=== PATIENT | female | born 2005 | race Two or more races ===

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

== ENCOUNTER 2025-03-09 08:46 | Outpatient (AMB) | payer MEDICAID, SELFPAY ==
[2025-03-09 09:05] VITALS: BP 111/73; PULSE 94; RESP 17; TEMP 36.4; O2SAT 98; BMI 40.8
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
== END 2025-03-09 09:29 | disposition home or self-care (01) ==
LOC: HODSOBC 08:46
PROVIDERS: Supervising Provider Obstetrics & Gynecology; Visit Provider Obstetrics & Gynecology
DX: O09.892 Supervision of other high risk pregnancies, second trimester (principal); O24.012 Pre-existing type 1 diabetes mellitus, in pregnancy, second trimester; E10.65 Type 1 diabetes mellitus with hyperglycemia; Z3A.27 27 weeks gestation of pregnancy; F17.210 Nicotine dependence, cigarettes, uncomplicated; O99.332 Smoking (tobacco) complicating pregnancy, second trimester; O99.322 Drug use complicating pregnancy, second trimester; F12.10 Cannabis abuse, uncomplicated; F14.10 Cocaine abuse, uncomplicated; Z87.59 Personal history of other complications of pregnancy, childbirth and the puerperium; Z79.4 Long term (current) use of insulin; Z71.6 Tobacco abuse counseling
CPT/HCPCS: 99213; G0463

== ENCOUNTER 2025-03-09 09:48 | Observation (INO) | payer SELFPAY ==
[2025-03-09] VITALS (7 sets, daily range): BP systolic 116; BP diastolic 66; PULSE 81–89; RESP 18–97; TEMP 36.6; O2SAT 99–100; BMI 40.8
--- NOTE | 2025-03-09 10:08 | XR_ITS ---
Examination: age Limited TECHNIQUE: Limited transabdominal sonographic images pelvis Date and time: March 09, 2025 1049 hours INDICATIONS: Labor evaluation, type 1 diabetes, lost mucous plug today FINDINGS: Viable intrauterine gestation cephalic presentation Estimated weight 1120 g Estimated age 27 weeks 1 day Cardiac motion 160 BPM IMPRESSION: Viable intrauterine gestation cephalic presentation
--- NOTE | 2025-03-09 10:10 | XR_ITS ---
Examination: Biophysical profile, ultrasound Date and time of exam: March 19, 2025 1043 hours INDICATIONS: Labor evaluation, type 1 diabetes diagnosis Technique: Multiple transabdominal sonographic images of the pelvis abdomen obtained. Attention is directed to the breathing movement, gross body movement, amniotic fluid volume and tone. Findings: Amniotic fluid index 14.6 cm Total biophysical profile is 8 of 8. breathing movement is 2. Gross body movement is 2. tone is 2. Qualitative amniotic fluid volume is 2 Impression: Biophysical profile is 8 of 8.
[2025-03-09 11:14] LABS: Amphetamine/Metham Scrn,Ur OB Negative (Negative); Benzoylecgonine Screen, Ur OB Negative (Negative); Opiate Screen,Urine OB Negative (Negative); THC Screen,Urine OB Negative (Negative)
[2025-03-09 12:06] LABS: Glucose Estimated Average 192 mg/dL (80-131); Hemoglobin A1C 8.3 % Hgb (4.8-6.0)
== END 2025-03-09 12:30 | disposition home or self-care (01) ==
PROVIDERS: Admitting Provider Obstetrics & Gynecology; Visit Provider Obstetrics & Gynecology
DX: O24.012 Pre-existing type 1 diabetes mellitus, in pregnancy, second trimester (principal); E10.9 Type 1 diabetes mellitus without complications; Z3A.27 27 weeks gestation of pregnancy
CPT/HCPCS: 36415; 59025; 59899; 76815; 76819; 80307; 83036

== ENCOUNTER 2025-03-19 13:04 | Outpatient (AMB) | payer MEDICAID, SELFPAY ==
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
[2025-03-19 13:13] VITALS: BP 109/71; PULSE 102; RESP 20; TEMP 36.7; O2SAT 98; BMI 41.0
== END 2025-03-19 14:05 | disposition home or self-care (01) ==
LOC: HODSOBC 13:04
PROVIDERS: Supervising Provider Obstetrics & Gynecology; Visit Provider Obstetrics & Gynecology
DX: O09.293 Supervision of pregnancy with other poor reproductive or obstetric history, third trimester (principal); O34.219 Maternal care for unspecified type scar from previous cesarean delivery; O09.893 Supervision of other high risk pregnancies, third trimester; Z3A.29 29 weeks gestation of pregnancy; O24.013 Pre-existing type 1 diabetes mellitus, in pregnancy, third trimester; E10.9 Type 1 diabetes mellitus without complications; O99.323 Drug use complicating pregnancy, third trimester; F14.10 Cocaine abuse, uncomplicated; F12.10 Cannabis abuse, uncomplicated; O99.333 Smoking (tobacco) complicating pregnancy, third trimester; F17.210 Nicotine dependence, cigarettes, uncomplicated; Z71.6 Tobacco abuse counseling; Z87.59 Personal history of other complications of pregnancy, childbirth and the puerperium; Z79.4 Long term (current) use of insulin
CPT/HCPCS: 99214; G0463

== ENCOUNTER 2025-04-21 00:52 | Observation (INO) | payer MEDICAID, SELFPAY ==
[2025-04-21 01:11] VITALS: BP 111/70; PULSE 81; RESP 17; RESP 98; TEMP 36.1
[2025-04-21 01:12] VITALS: BP 111/70; PULSE 81
[2025-04-21 01:23] VITALS: BMI 43.0
--- NOTE | 2025-04-21 01:38 | XR_ITS ---
Examination: Biophysical profile, ultrasound Date and time of exam: April 21, 2025, 0156 hrs. Indications: Decreased movement today Technique: Multiple transabdominal sonographic images of the pelvis abdomen obtained. Attention is directed to the breathing movement, gross body movement, amniotic fluid volume and tone. Findings: Amniotic fluid index 8.3 cm Total biophysical profile is 8 of 8. breathing movement is 2. Gross body movement is 2. tone is 2. Qualitative amniotic fluid volume is 2 Impression: Biophysical profile is 8 of 8.
--- NOTE | 2025-04-21 01:38 | XR_ITS ---
Examination: Complete OB ultrasound greater than 14 weeks Date and time of exam: April 21, 2025, 0148 hrs. Indications: Decreased movement today Findings: Viable intrauterine single fetus with single amniotic sac presentation cephalic Cardiac motion 143 BPM Placenta posterior grade 1 Umbilical cord insertion 3 vessel seen Amniotic fluid index adequate Ovaries obscured by bowel gas. Composite estimated gestational age based on BPD, head circumference, abdominal circumference, femur length is 35 weeks 6 days Estimated weight 3037.5 g. Survey of intracranial anatomy, spinal anatomy, abdominal anatomy, four-chamber heart performed with no abnormalities identified. Impression: Viable intrauterine gestation cephalic presentation.
--- NOTE | 2025-04-21 03:53 | PRELIM_ITS ---
Obstetric ultrasound with Doppler. April 21, 2025 at 0148 hours Clinical history: Decreased movement. Comparison: No prior study is available for comparison. Findings: There is a gravid uterus with a live fetus in cephalic presentation of mean gestational age 35 weeks and 6 days (by biometry). cardiac activity is present at a heart rate of 143 beats per minute. The placenta is posterior in location, maturity grade 1. There is no evidence of placenta previa or retroplacental hemorrhage. Amniotic fluid is adequate (JORDY = 8.8 cm). Estimated weight is 3038 grams. The cervix measures 4.4 cm, closed. The ovaries were not visualized. No abnormalities by Doppler. Impression: Gravid uterus with a single live fetus in cephalic presentation of mean gestational age 35 weeks 6 days. Report Electronically Signed By: Tod Irby 04/21/2025 3:52:26 AM [EST]
--- NOTE | 2025-04-21 03:56 | PRELIM_ITS ---
Obstetric ultrasound (limited) with Doppler. April 21, 2025 0156 hours Clinical history: DECREASED MOVEMENT Comparison: None available at the time of this report. Findings: There is a gravid uterus with a live fetus in cephalic presentation of mean gestational age 35 weeks and 6 days (by biometry). cardiac activity is present at a heart rate of 143 beats per minute. The placenta is posterior in location, maturity grade 1. There is no evidence of placenta previa or retroplacental hemorrhage. Amniotic fluid is adequate (JORDY = 8.8 cm). Estimated weight is 3038 grams. The cervix measures 4.4 cm. No abnormalities by Doppler. Biophysical Profile: Breathing : 2 Tone : 2 Amniotic fluid : 2 Movement : 2 BPP Score : 8/8 Impression: Gravid uterus with a single live fetus in cephalic presentation of mean gestational age 35 weeks and 6 days. Normal biophysical profile as recorded by the ultrasound tech. Report Electronically Signed By: Tod Irby 04/21/2025 3:55:30 AM [EST]
== END 2025-04-21 04:39 | disposition home or self-care (01) ==
PROVIDERS: Admitting Provider Obstetrics & Gynecology; Visit Provider Obstetrics & Gynecology
DX: O36.8130 Decreased fetal movements, third trimester, not applicable or unspecified (principal); Z3A.35 35 weeks gestation of pregnancy
CPT/HCPCS: 59025; 59899; 76805; 76819

== ENCOUNTER 2025-04-24 17:24 | Observation (INO) | payer MEDICAID, SELFPAY ==
[2025-04-24] VITALS (16 sets, daily range): BP systolic 111; BP diastolic 68; PULSE 81–100; RESP 18–99; TEMP 36.6; O2SAT 98–99; BMI 44.4
== END 2025-04-24 19:00 | disposition home or self-care (01) ==
PROVIDERS: Admitting Provider Obstetrics & Gynecology; Visit Provider Obstetrics & Gynecology
DX: O36.8130 Decreased fetal movements, third trimester, not applicable or unspecified (principal); Z3A.34 34 weeks gestation of pregnancy
CPT/HCPCS: 59025; 59899; G0378

== ENCOUNTER 2025-05-01 05:54 | Inpatient (IN) | payer MEDICAID, SELFPAY ==
[2025-05-01] VITALS (38 sets, daily range): BP systolic 92–138; BP diastolic 57–90; PULSE 76–99; RESP 13–99; TEMP 36.1–36.9; O2SAT 95–100; BMI 44.6
--- NOTE | 2025-05-01 06:42 | XR_ITS ---
Examination: Complete OB ultrasound greater than 14 weeks Date and time of exam: May 01, 2025, 0734 hrs. Indications: Onset pelvic contractions today Findings: Viable intrauterine single fetus with single amniotic sac presentation cephalic Cardiac motion 150 BPM Placenta maternal left grade 3 Umbilical cord insertion seen Amniotic fluid index 11.4 cm Cervix 3.6 cm closed Ovaries obscured by bowel gas. Composite estimated gestational age based on BPD, head circumference, abdominal circumference, femur length is 35 weeks 5 days Estimated weight 2836.6 g. Survey of intracranial anatomy, spinal anatomy, abdominal anatomy, four-chamber heart performed with no abnormalities identified. Impression: Viable intrauterine gestation cephalic presentation.
[2025-05-01] MEDS: RINGERS LACTATED 1000 ML 1,000 ML 999 ML IV (07:25)
[2025-05-01 07:50] LABS: Basophils # (Auto) 0.0 Thou/mm3 (0.0-0.2); Basophils % (Auto) 0 % (0-2.5); Eosinophils # (Auto) 0.1 Thou/mm3 (0.0-0.5); Eosinophils % (Auto) 1 % (0-10); Hematocrit 30.4 % (36.0-46.0); Hemoglobin 9.6 g/dL (12.0-16.0); Immature Granulocytes Auto 0.03 Thou/mm3 (0.00-0.00); Lymphocytes # (Auto) 2.6 Thou/mm3 (1.0-4.8); Lymphocytes % (Auto) 29 % (10-50); Mean Corpuscular HGB Conc 31.6 g/dl (31.0-37.0); Mean Corpuscular Hemoglobin 24.9 pg (25.0-35.0); Mean Corpuscular Volume 79 fL (80-100); Monocytes # (Auto) 0.5 Thou/mm3 (0.0-0.8); Monocytes % (Auto) 6 % (0-12); Neutrophils # (Auto) 5.8 Thou/mm3 (1.8-7.7); Neutrophils % (Auto) 64 % (37-80); Nucleated Red Blood Cell # 0.00 Thou/mm3 (0.00-0.00); Nucleated Red Blood Cell % 0 /100 WBC (0); Platelet Count 302 Thou/mm3 (140-440); RDW Standard Deviation 37.6 fL (36.4-46.3); Red Blood Count 3.85 Miln/mm3 (4.00-5.20); White Blood Count 9.0 Thou/mm3 (4.5-11.0)
[2025-05-01 08:06] LABS: Amphetamine/Metham Scrn,Ur OB Negative (Negative); Benzoylecgonine Screen, Ur OB Negative (Negative); Opiate Screen,Urine OB Negative (Negative); THC Screen,Urine OB Negative (Negative)
[2025-05-01 08:07] LABS: Glucose Estimated Average 197 mg/dL (80-131); Hemoglobin A1C 8.5 % Hgb (4.8-6.0)
--- NOTE | 2025-05-01 08:08 | PD.LDHP ---
Documentation for date of: 05/01/25 OB Labor/Induct. HPI History of Present Illness Chief complaint: in labor , preexisting DM since age 11, poorly controlled DM, labor : 2 Para: 1 Term pregnancies: 0 pregnancies: 1 Living children: 1 History of Abortions: Spontaneous and Elective: 0 History of Vaginal deliveries: 1 History of sections: No History of : No Date of last menstrual period: 08/27/24 MORENA: 06/03/25 Gestational age based on last menstrual period: 35 Indication for induction: other History of present illness: patient was to have a c section at [place] next week due to h/o difficult shoulder dystocia last and she is in labor at 3 cm and erika every 2 o 3 minutes , strong prfers to proceed with c secton delivery here. R/B and options discussed , risk of infection, NICU for the baby and also possible risks of surgery and possible need for blood transfusion d/w patient and FOB and would like to proceed with emergency c section . All questions answered. History of Present Adequate Care: Yes Abnormal ultrasound findings: see records Obstetrical complications: other (pre existing DM /since age 11/ patient 42 units in am and 46 units of Humulin N and also Humalog 46 units with meals / last Hb A1c was >8) Review of Systems Review of Systems Systems Reviewed: All systems reviewed, normal except as documented Genitourinary Genitourinary: Reports system reviewed and no additional complaints, except as documented Musculoskeletal Musculoskeletal: Reports system reviewed and no additional complaints, except as documented Psychiatric Psychiatric: Reports system reviewed and no additional complaints, except as documented Endocrine Endocrine: Reports system reviewed and no additional complaints, except as documented and Reports as per HPI Past Medical History Past Medical History REPRODUCTIVE: Positive Previous Pregnancies (as noted in HPI) ENDOCRINE: Positive Diabetes Mellitus Type 1 (since age 11 and poorly controlled ) PSYCHO/SOCIAL: Positive Recreational Drug Use Surgical History SURGICAL: Negative Section Meds Home Medications and Allergies Home Medications ?Medication ?Instructions ?Recorded ?Confirmed ?Type insulin glargine 100 unit/mL (3 46 unit subcut HS 02/21/21 05/01/25 History mL) subcutaneous pen (Lantus Solostar U-100 Insulin) insulin lispro 100 unit/mL 46 unit subcut TID 05/01/25 05/01/25 History subcutaneous cartridge (Humalog U-100 Insulin) Allergies Allergy/AdvReac Type Severity Reaction Status Date / Time No Known Allergies Allergy Verified 05/01/25 06:57 OB Exam Physical Exam Vital signs: Temp Pulse Resp BP Pulse Ox O2 Del Method 96.9 F 95 19 125/81 100 Room Air 05/01/25 06:09 05/01/25 06:09 05/01/25 06:09 05/01/25 06:09 05/01/25 08:02 05/01/25 06:09 Narrative: patient in pain due to mod intensity contractions Constitutional Constitutional: no acute distress and obese Routine HEENT Exam Head: Present normocephalic and atraumatic Eye: Present PERRL and normal accommodation Routine Neck Exam Neck: Present supple and full ROM Routine Respiratory Exam Respiratory: Present CTA bilaterally Routine Cardiovascular Exam Cardiovascular: Present RRR Routine Abdominal Exam Abdominal: Present soft and normoactive bowel sounds Comments: uterus Routine Extremities Exam Extremities: Present full ROM and pulses intact Routine Skin Exam Skin: Present intact Routine Neurological Exam Neurological: Present alert, oriented X3, normal reflexes, vision grossly intact and normal speech Routine Psychiatric Exam Psychiatric: Present normal affect, normal thought process, cooperative, good insight and good judgment OB Results Labs 05/01/25 07:25 05/01/25 07:25 Labs: Short CBC 05/01/25 Range/Units 07:25 WBC 9.0 (4.5-11.0) Thou/mm3 Hgb 9.6 L (12.0-16.0) g/dL Hct 30.4 L (36.0-46.0) % Plt Count 302 (140-440) Thou/mm3 OB Assessment & Plan Assessment and Plan (1) 35 to 36 weeks gestation of : Status: Acute (2) Type 1 diabetes mellitus: Status: Acute (3) History of shoulder dystocia in prior : Status: Acute (4) Labor abnormality, antepartum: Status: Acute Additional Plan Induction method: other (Patient was scheduled for a primary LTCS in [place] next week and prefers to deliver by C section due to h/o severe shoulder dystocia last aat 34 weeks and she has been poorly controlled this also ) Plan: other Additional Plan Comment: Plan emergency LTCS. NICU/ peds aware . Patient is given risk and benefits and options of versus vaginal delivery. Risk of infection bleeding possible injury to the surrounding organs like bladde,r bowel ,ureter ,uterus ,tubes, ovaries , blood vessels , nerves etc during surgery , all possible, possible need for blood transfusion etc. in case of heavy bleeding or blood loss. Patient wants and is willing to proceed with emergency section delivery. (2) Type 1 diabetes mellitus Qualifiers: Diabetes mellitus complication status: with hyperglycemia Qualified Code(s): E10.65 - Type 1 diabetes mellitus with hyperglycemia
[2025-05-01] MEDS: ceFAZolin/D5W 2 GM IV 2 GM/100 ML BAG IV (08:12)
[2025-05-01] MEDS: METOCLOPRAMIDE INJ 5 MG/ML VIAL 2 ML 10 MG IVP (08:12)
[2025-05-01] MEDS: FAMOTIDINE INJ 10 MG/ML VIAL 2 ML 20 MG IV (08:15)
[2025-05-01 08:18] LABS: Alanine Aminotransferase < 7 U/L (10-49); Albumin, Serum 3.3 gm/dL (3.5-5.0); Albumin/Globulin Ratio 1.5 (1.2-2.2); Alkaline Phosphatase 118 U/L (46-116); Anion Gap 8 (7-16); Aspartate Amino Transferase < 10 U/L (0-34); BUN/Creatinine Ratio 20 Ratio (12-20); Bilirubin,Total 0.2 mg/dL (0.3-1.2); Blood Urea Nitrogen 10 mg/dL (9-23); Calcium 8.5 mg/dL (8.3-10.6); Calcium (Corrected) 9.1 mg/dL (8.5-10.1); Carbon Dioxide 19.0 mMol/L (20.0-31.0); Chloride 110 mMol/L (98-107); Creatinine (Component) 0.5 mg/dL (0.6-1.3); Estimated Creatinine Clearance 187.2 mL/min (>60); Globulin 2.2 gm/dL (2.3-3.5); Glucose 166 mg/dL (74-106); Osmolality,Calculated 276 (275-295); Potassium 3.9 mMol/L (3.4-5.1); Sodium 137 mMol/L (136-145); Total Protein 5.5 gm/dL (5.7-8.2); eGFR > 60 See Note
[2025-05-01 08:34] LABS: Syphilis Nonreactive (Nonreactive)
[2025-05-01] MEDS: AZITHROMYCIN INJ 500 MG in SODIUM CHLORIDE 0.9% 250 ML 250 ML 250 MG IV (08:45)
--- NOTE | 2025-05-01 10:05 | PD.GYNPROC ---
Operative Note - [facility] Procedure Date of procedure: 05/01/25 Procedure Performed: Primary low-transverse section emergency Indication: 35 weeks with poorly controlled type 1 diabetes mellitus in labor and with previous history of severe shoulder dystocia . Pre-Op diagnosis: See indication Post-Op diagnosis: Same Anesthesia type: Spinal Procedure description: After an informed consent patient taken to the operating room, received spinal anesthesia was prepped and draped in the usual sterile fashion had a Pride in place and then a timeout was done . Patient had received surgical site prophylaxis ,she had SCDs in place ,abdomen was taped up , patient was draped and the surgical team was readyand surgery begun in the usual sterile manner. A Pfannansteil incision was made 2 fingerbreadths above the symphysis pubis , carried down from skin to subcutaneous tissue to rectus sheath, which is a incised transversely from the underlying muscles by sharp and blunt dissection, peritoneal cavity entered atraumatically a bladder blade placed inferiorly and Rob retractor superiorly Incision made in the lower uterine segment where there are a lot of blue, thick veins and sinuses running in the lower uterine segment through this baby was delivered as cephalic, with fundal pressure, delivery was accomplished without any problem. Cord clamped and cut, cord blood collected placenta removed partially spontaneously partially manually and then uterus exteriorized and wrapped in a wet lap . Uterine incision closed in 2 layers with 0 Monocryl suture and second of 0 Vicryl. There is a small hematoma on the left side of the incision where there is a big sinus and this is secured with separate 0 Monocryl sutures hemostasis is achieved and is checked for and is present . The tubes and ovaries look normal. Uterus placed back in the abdomen along with the tubes and ovaries. Uterine incision checked for hemostasis again prior to closure and a small ooze on the right side of the incision is secured with 2-0 Vicryl suture. Hemostasis checked for again and is present. Paracolic gutters and cul-de-sacs are clean dry of any remaining collected blood and debris. Counts are correct peritoneum closure done with 2-0 Vicryl rectus abdominis muscles approximated with a [id number] 2-0 Vicryl suture. Rectus sheath closed with 0 Monocryl. Subcutaneous tissue closed with 2-0 plain catgut. Skin approximated with 4-0 Monocryl Prineo dressing with Dermabond applied. And once it dries out then ABD dressing is placed. Patient delivered a liveborn boy with good cry and Apgars. EBL is 800 cc approximately. Pride is draining clear urine. Counts are correct patient sent to recovery in a stable condition.. Estimated blood loss (ml): 800 Findings: vascular DONITA Complications: none Narrative: see procedure Surgical staff Operation Date: 05/01/25 08:45 <No data on this case meets the specified criteria> Diagnosis Discharge Diagnosis (1) 35 to 36 weeks gestation of : Status: Acute (2) Labor abnormality, antepartum: Status: Acute (3) History of shoulder dystocia in prior : Status: Acute (4) Type 1 diabetes mellitus: Status: Acute Problem List Completed Was Problem List Reviewed/Reconciled?: Yes (4) Type 1 diabetes mellitus Qualifiers: Diabetes mellitus complication status: with hyperglycemia Qualified Code(s): E10.65 - Type 1 diabetes mellitus with hyperglycemia
[2025-05-01] MEDS: KETOROLAC INJ 30 MG/ML VIAL IVP (10:54)
[2025-05-01 15:24] LABS: Collection Type, Urine Catheter
[2025-05-01 15:35] LABS: Bilirubin,Urine Negative (Negative); Blood,Urine Negative (Negative); Color,Urine Yellow (Lt Yel-Yel); Glucose, Urine 1+ (Negative); Ketones,Urine Trace (Negative); Leukocyte Esterase,Urine Negative (Negative); Nitrite,Urine Negative (Negative); PH,Urine 6.0 (5.0-7.0); Protein,Urine 2+ (Neg - Trace); RBC,Urine 39 /hpf (0-3); Specific Gravity,Urine 1.046 (1.001-1.035); Squamous Epithelial Cell,Urine 2 /hpf (0-5); Urobilinogen,Urine 2.0 mg/dL (0.0-1.0); WBC,Urine 8 /hpf (0-5)
[2025-05-01 15:43] LABS: Clarity,Urine Hazy (Clear/Hazy)
[2025-05-01] MEDS: OXYTOCIN in NS 20 units 20 UNIT/1,000 ML BAG 125 UNIT IV (16:53)
[2025-05-01 17:45] LABS: Basophils # (Auto) 0.0 Thou/mm3 (0.0-0.2); Basophils % (Auto) 0 % (0-2.5); Eosinophils # (Auto) 0.0 Thou/mm3 (0.0-0.5); Eosinophils % (Auto) 0 % (0-10); Hematocrit 27.2 % (36.0-46.0); Immature Granulocytes Auto 0.03 Thou/mm3 (0.00-0.00); Lymphocytes # (Auto) 2.2 Thou/mm3 (1.0-4.8); Lymphocytes % (Auto) 23 % (10-50); Mean Corpuscular HGB Conc 31.3 g/dl (31.0-37.0); Mean Corpuscular Hemoglobin 25.0 pg (25.0-35.0); Mean Corpuscular Volume 80 fL (80-100); Monocytes # (Auto) 0.5 Thou/mm3 (0.0-0.8); Monocytes % (Auto) 5 % (0-12); Neutrophils # (Auto) 6.5 Thou/mm3 (1.8-7.7); Neutrophils % (Auto) 71 % (37-80); Nucleated Red Blood Cell # 0.00 Thou/mm3 (0.00-0.00); Nucleated Red Blood Cell % 0 /100 WBC (0); Platelet Count 257 Thou/mm3 (140-440); RDW Standard Deviation 37.9 fL (36.4-46.3); Red Blood Count 3.40 Miln/mm3 (4.00-5.20); White Blood Count 9.2 Thou/mm3 (4.5-11.0)
[2025-05-01 17:48] LABS: Hemoglobin 8.5 g/dL (12.0-16.0)
[2025-05-01] MEDS: FUROSEMIDE INJ 10 MG/ML 4ML VIAL IVP (18:27)
[2025-05-01] MEDS: SODIUM CHLORIDE 0.9% 500 ML 500 ML 999 ML IV (18:29)
[2025-05-01] MEDS: ONDANSETRON INJ 2 MG/ML INJ 2 ML 4 MG IVP (18:37)
[2025-05-02 04:00] VITALS: BP 115/77; PULSE 88; RESP 19; TEMP 36.9; O2SAT 99
[2025-05-02 07:08] LABS: Anion Gap 7 (7-16); BUN/Creatinine Ratio 18 Ratio (12-20); Blood Urea Nitrogen 9 mg/dL (9-23); Calcium 8.1 mg/dL (8.3-10.6); Carbon Dioxide 23.9 mMol/L (20.0-31.0); Chloride 107 mMol/L (98-107); Creatinine (Component) 0.5 mg/dL (0.6-1.3); Estimated Creatinine Clearance 187.2 mL/min (>60); Glucose 251 mg/dL (74-106); Osmolality,Calculated 282 (275-295); Potassium 4.7 mMol/L (3.4-5.1); Sodium 138 mMol/L (136-145); eGFR > 60 See Note
[2025-05-02] MEDS: INSULIN LISPRO (AdmeLOG) 1 UNIT/0.01 ML UNIT SC ×3 (07:28→16:38)
[2025-05-02] MEDS: KETOROLAC INJ 30 MG/ML VIAL IVP ×2 (07:28→16:43)
[2025-05-02 07:30] VITALS: BP 122/83; PULSE 91; RESP 18; TEMP 36.7; O2SAT 100
--- NOTE | 2025-05-02 08:07 | PD.LDPPPRG ---
Subjective Subjective Interval history: Patient is resting comfortably in bed. She is postop day [address] Oliver for history of shoulder dystocia. The baby was already 7-1/2 pounds at 35 weeks. The baby is in the nursery for blood sugar control. Patient's sugars are still in the 250 range. She is not out of bed yet. She has a hemoglobin pending. Predelivery hemoglobin 9.6 her hemoglobin yesterday was 8.5 this morning is pending. Patient was told I will write IV iron. Depending on what her hemoglobin is she might need blood. The plan will be to DC the Pride have the patient ambulate and keep her IVs hep-locked and in place for now. The father of the baby is at bedside. Exam Vital Signs Temp Pulse Resp BP Pulse Ox O2 Del Method 98.5 F 88 19 115/77 99 Room Air 05/02/25 04:00 05/02/25 04:00 05/02/25 04:00 05/02/25 04:00 05/02/25 04:00 05/02/25 04:00 Narrative Exam Patient is alert and orient x 3 in no apparent distress. Fundus is firm at umbilicus and nontender, her incision is clean dry and intact. The dressing has been removed. Her catheter is draining copious clear urine. Extremities show no significant edema or erythema Objective Labs 05/01/25 17:19 05/02/25 05:55 Labs: Laboratory Results - last 24 hr 05/01/25 05/01/25 05/01/25 07:25 14:05 17:19 WBC 9.0 9.2 RBC 3.85 L 3.40 L Hgb 9.6 L 8.5 L Hct 30.4 L 27.2 L MCV 79 L 80 MCH 24.9 L 25.0 MCHC 31.6 31.3 RDW Std Deviation 37.6 37.9 Plt Count 302 257 D Neut % (Auto) 64 71 Lymph % (Auto) [address] [place] % (Auto) 6 5 Eos % (Auto) 1 0 Baso % (Auto) 0 0 Neut # (Auto) 5.8 6.5 Lymph # (Auto) 2.[address] [place] # (Auto) 0.5 0.5 Eos # (Auto) 0.1 0.0 Baso # (Auto) 0.0 0.0 Immature Gran # (Auto) 0.03 H 0.03 H Absolute Nucleated RBC 0.00 0.00 Immature Gran % 0 0 Nucleated RBC % 0 0 Sodium 137 Potassium 3.9 Chloride 110 H Carbon Dioxide 19.0 L Anion Gap 8 BUN 10 Creatinine 0.5 L Estim Creat Clear Calc 187.2 eGFR > 60 BUN/Creatinine Ratio [address] Glu mg/dL 197 H Hemoglobin A1c 8.5 H Calculated Osmolality 276 Calcium 8.5 Corrected Calcium 9.1 Total Bilirubin 0.2 L AST < 10 ALT < 7 L Alkaline Phosphatase 118 H Total Protein 5.5 L Albumin 3.3 L Globulin 2.2 L Albumin/Globulin Ratio 1.5 Ur Collection Type Catheter Urine Color Yellow Urine Clarity Hazy Urine pH 6.0 Ur Specific [place] 1.046 H Urine Protein 2+ A Urine Glucose (UA) 1+ A Urine Ketones Trace Urine Blood Negative Urine Nitrite Negative Urine Bilirubin Negative Urine Urobilinogen (Auto) 2.0 Ur Leukocyte Esterase Negative Urine RBC 39 H Urine WBC 8 H Ur Squamous Epith Cells 2 Urine Bacteria None Syphilis Serology Nonreactive Blood Type O Positive Antibody Screen NEGATIVE 05/02/25 05:55 WBC RBC Hgb Hct MCV MCH MCHC RDW Std Deviation Plt Count Neut % (Auto) Lymph % (Auto) [place] % (Auto) Eos % (Auto) Baso % (Auto) Neut # (Auto) Lymph # (Auto) [place] # (Auto) Eos # (Auto) Baso # (Auto) Immature Gran # (Auto) Absolute Nucleated RBC Immature Gran % Nucleated RBC % Sodium 138 Potassium 4.7 D Chloride 107 Carbon Dioxide 23.9 Anion Gap 7 BUN 9 Creatinine 0.5 L Estim Creat Clear Calc 187.2 eGFR > 60 BUN/Creatinine Ratio 18 Glucose [address] Glu mg/dL Hemoglobin A1c Calculated Osmolality 282 Calcium 8.1 L Corrected Calcium Total Bilirubin AST ALT Alkaline Phosphatase Total Protein Albumin Globulin Albumin/Globulin Ratio Ur Collection Type Urine Color Urine Clarity Urine pH Ur Specific [place] Urine Protein Urine Glucose (UA) Urine Ketones Urine Blood Urine Nitrite Urine Bilirubin Urine Urobilinogen (Auto) Ur Leukocyte Esterase Urine RBC Urine WBC Ur Squamous Epith Cells Urine Bacteria Syphilis Serology Blood Type Antibody Screen Assessment & Plan Problem List (1) History of shoulder dystocia in prior : Problem details: Postop day 1 status post primary for 35 weeks in active labor with history of shoulder dystocia. Status: Acute (2) Type 1 diabetes mellitus: Problem details: Working on blood sugars. Status: Acute (3) labor in third trimester with delivery: Status: Acute (4) History of shoulder dystocia in prior : Status: Acute (5) care following vaginal delivery: Problem details: Routine post op care. Status: Acute Time Spent With Patient Time: Total time spent is greater than 50% in coordination of care (as documented) at patient's floor/unit and/or counseling patient: Time with patient: less than 15 minutes
[2025-05-02] MEDS: ENOXAPARIN SOD INJ 40 MG/0.4 ML SYRINGE SC (08:39)
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
--- NOTE | 2025-05-02 14:57 | PC.SS ---
During assessment patient informed STEAM FINISHER of possessing open CWS case. STEAM FINISHER contacted CWS screener, Mayda Zambrano; to provide update on patient's delivery of . CWS screener transferred STEAM FINISHER to patient' assigned social worker psychiatric, Cristal Mcarthur. STEAM FINISHER informed S.W. that records indicate that patient was positive for THC and cocaine. STEAM FINISHER informed S.W. that patient's toxicology report was negative at admission. STEAM FINISHER informed S.W. that was delivered via and 35 weeks. STEAM FINISHER provided S.W. with infant's measurements. S.W. confirmed that patient possesses open case and will conduct follow up with patient at later date.
[2025-05-02 15:30] VITALS: BP 116/79; PULSE 91; RESP 20; TEMP 36.9; O2SAT 99
[2025-05-02 20:00] VITALS: BP 120/80; PULSE 89; RESP 18; TEMP 36.3; O2SAT 98
--- NOTE | 2025-05-02 20:07 | PC.NURSE ---
Notify MD Alonso of pt's Blood sugar. will put an order.
[2025-05-02] MEDS: INSULIN NPH 1 UNIT/0.01 ML (PER UNIT) 30 UNIT SC (20:16)
[2025-05-02] MEDS: INSULIN LISPRO (AdmeLOG) 1 UNIT/0.01 ML UNIT 30 UNIT SC (20:16)
[2025-05-02] MEDS: ACETAMINOPHEN 325 MG TABLET 650 MG PO (22:14)
[2025-05-03] MEDS: HYDROcodone/APAP 5/325 TABLET 1 TAB PO ×3 (04:04→12:32)
[2025-05-03 04:09] VITALS: BP 104/68; PULSE 88; RESP 17; TEMP 36.8; O2SAT 98
[2025-05-03 05:39] LABS: Basophils # (Auto) 0.0 Thou/mm3 (0.0-0.2); Basophils % (Auto) 0 % (0-2.5); Eosinophils # (Auto) 0.1 Thou/mm3 (0.0-0.5); Eosinophils % (Auto) 2 % (0-10); Hematocrit 24.5 % (36.0-46.0); Immature Granulocytes Auto 0.04 Thou/mm3 (0.00-0.00); Lymphocytes # (Auto) 2.1 Thou/mm3 (1.0-4.8); Lymphocytes % (Auto) 30 % (10-50); Mean Corpuscular HGB Conc 31.4 g/dl (31.0-37.0); Mean Corpuscular Hemoglobin 25.1 pg (25.0-35.0); Mean Corpuscular Volume 80 fL (80-100); Monocytes # (Auto) 0.5 Thou/mm3 (0.0-0.8); Monocytes % (Auto) 7 % (0-12); Neutrophils # (Auto) 4.2 Thou/mm3 (1.8-7.7); Neutrophils % (Auto) 61 % (37-80); Nucleated Red Blood Cell # 0.00 Thou/mm3 (0.00-0.00); Nucleated Red Blood Cell % 0 /100 WBC (0); Platelet Count 292 Thou/mm3 (140-440); RDW Standard Deviation 38.5 fL (36.4-46.3); Red Blood Count 3.07 Miln/mm3 (4.00-5.20); White Blood Count 7.0 Thou/mm3 (4.5-11.0)
[2025-05-03 05:48] LABS: Hemoglobin 7.7 g/dL (12.0-16.0)
[2025-05-03 05:53] LABS: Thyroid Stimulating Hormone 4.04 uIU/mL (0.55-4.78)
[2025-05-03 07:30] VITALS: BP 138/85; PULSE 94; RESP 18; TEMP 36.6; O2SAT 100
[2025-05-03] MEDS: INSULIN NPH 1 UNIT/0.01 ML (PER UNIT) 20 UNIT SC (07:59)
[2025-05-03] MEDS: INSULIN LISPRO (AdmeLOG) 1 UNIT/0.01 ML UNIT 15 UNIT SC (08:01)
[2025-05-03] MEDS: ENOXAPARIN SOD INJ 40 MG/0.4 ML SYRINGE SC (08:11)
[2025-05-03] MEDS: FERRIC SOD GLUC INJ 250 MG in SODIUM CHLORIDE 0.9% 100 ML 120 MG IV (09:21)
--- NOTE | 2025-05-03 12:54 | PD.LDPPPRG ---
Subjective Subjective Interval history: Delivery type: , poorly controlled type I DM Patient doing well this morning. No acute complaints. Ambulating, tolerating p.o. and voiding without difficulty. HTN/Pre-Eclampsia screen: No chest pain, shortness of breath, headache, visual changes, epigastric or right upper quadrant pain. Breast-feeding, lochia diminishing. Bowel: Flatus+/ BM+ Exam Vital Signs Temp Pulse Resp BP Pulse Ox O2 Del Method 97.9 F 94 18 138/85 H 100 Room Air 05/03/25 07:30 05/03/25 07:30 05/03/25 07:30 05/03/25 07:30 05/03/25 07:30 05/03/25 07:30 Constitutional Constitutional: no acute distress Routine HEENT Exam Head: Present normocephalic and atraumatic Eye: Present EOMI and PERRL ENT: Present mucous membranes moist Routine Neck Exam Neck: Present supple and trachea midline Routine Respiratory Exam Respiratory: Present chest non-tender, lungs clear, normal breath sounds and no resp distress Routine Cardiovascular Exam Cardiovascular: Present RRR Routine Abdominal Exam Abdominal: Present soft and normoactive bowel sounds Routine Extremities Exam Extremities: Present full ROM Routine Skin Exam Skin: Present intact, dry and warm Routine Neurological Exam Neurological: Present alert, oriented X3 and CN II-XII intact Routine Psychiatric Exam Psychiatric: Present normal affect and normal thought process Objective Labs 05/03/25 05:02 05/02/25 05:55 Labs: Laboratory Results - last 24 hr 05/03/25 05:02 WBC 7.0 RBC 3.07 L Hgb 7.7 L Hct 24.5 L MCV 80 MCH 25.1 MCHC 31.4 RDW Std Deviation 38.5 Plt Count 292 D Neut % (Auto) 61 Lymph % (Auto) 30 [place] % (Auto) 7 Eos % (Auto) 2 Baso % (Auto) 0 Neut # (Auto) 4.2 Lymph # (Auto) 2.1 [place] # (Auto) 0.5 Eos # (Auto) 0.1 Baso # (Auto) 0.0 Immature Gran # (Auto) 0.04 H Absolute Nucleated RBC 0.00 Immature Gran % 1 H Nucleated RBC % 0 TSH 4.04 Assessment & Plan Problem List (1) History of shoulder dystocia in prior : Status: Acute (2) Type 1 diabetes mellitus: Status: Acute (3) labor in third trimester with delivery: Status: Acute (4) Early state: Status: Acute Assessment and plan: PPD/POD#2 1. Continue routine care 2. Transition to PO meds. 3. Encourage to ambulate/ breast-feed 4. Anticipate discharge home later today or early tomorrow 5. Patient was given IV iron due to hemoglobin of 7.7. Time Spent With Patient Time: Total time spent is greater than 50% in coordination of care (as documented) at patient's floor/unit and/or counseling patient:
--- NOTE | 2025-05-03 14:24 | PD.LDDS ---
DS: Providers Provider Date of admission: 05/01/25 07:03 Primary care physician: Physician No Primary/Family Admitting Provider: Jessy Alonso MD ([facility]) Attending Provider on Admission: Fei Forrest MD Consults: 05/01/25 08:26 Referral Routine Comment: Attending Provider on DC: Fei Forrest MD Discharging Provider: Fei Forrest MD DS: Diagnosis Discharge Diagnosis (1) Early state: Status: Acute (2) care following vaginal delivery: Status: Acute (3) Type 1 diabetes mellitus: Status: Acute (4) Diabetic keto-acidosis: Status: Acute Problem List Completed Was Problem List Reviewed/Reconciled?: Yes Summary/Hosp Course Brief History: patient was to have a c section at [place] next week due to h/o difficult shoulder dystocia last and she is in labor at 3 cm and erika every 2 o 3 minutes , strong prfers to proceed with c secton delivery here. R/B and options discussed , risk of infection, NICU for the baby and also possible risks of surgery and possible need for blood transfusion d/w patient and FOB and would like to proceed with emergency c section . All questions answered. Peripartum Data Delivery Method: Low Transverse Episiotomy Description: None Procedures: Procedures Operation Date: 05/01/25 08:45 Actual Procedure Side Surgeon p in OB Shruthi Oliver MD Time Spent with Patient Time attestation: Total time spent providing and/or coordinating discharge services: Exam Vital Signs Temp Pulse Resp BP Pulse Ox O2 Del Method 97.9 F 94 18 138/85 H 100 Room Air 05/03/25 07:30 05/03/25 07:30 05/03/25 07:30 05/03/25 07:30 05/03/25 07:30 05/03/25 07:30 Discharge Plan Plan Patient Disposition: HOME (Self Care) Patient condition on transfer: Stable Prescriptions/Referrals Prescriptions/Med Rec: New hydrocodone-acetaminophen 5-325 mg tablet 1 tab PO Q6H MDD 4 PRN (Reason: pain) 5 Days Qty: 20 0RF ibuprofen 600 mg tablet 600 mg PO Q6H MDD 4 PRN (Reason: fever or pain) 10 Days Qty: 40 0RF docusate sodium [Stool Softener] 100 mg capsule 100 mg PO QDAY 30 Days Qty: 30 0RF Changed insulin lispro [Humalog KwikPen Insulin] 100 unit/mL insulin pen 20 unit SUBCUT TID 30 Days Qty: 18 0RF Patient Comments: INJECT PER SLIDING SCALE OF 1 UNIT PER 7 GRAMS OF CARBOHYDRATES DIRECTED Humulin N NPH Insulin KwikPen 100 unit/mL (3 mL) insulin pen 15 unit SUBCUT .qAMHS 30 Days Qty: 9 1RF Patient Comments: INJECT 42 UNITS UNDER THE SKIN IN THE MORNING AND 42 UNITS BEFORE BEDTIME Discontinued Humalog U-100 Insulin 100 unit/mL cartridge 46 unit subcut TID Patient Comments: 46 units with meals No Action (DME) FreeStyle Galilea 3 Sensor Device See Rx Instructions .Route Qty: 1 2RF Rx Instructions: As directed Referrals: Fei Forrest MD [Physician, DIRECTOR [employer]] No Primary/Family,Physician [Primary Care Provider] Patient/Caregiver Discharge Instructions Other Discharge Activity Instructions:: Schedule an appointment with your ob provider in one week Education Materials: Breast Care After , After a , C Section Dc Print Language: Tamazight Stand Alone Forms: Courtney Award Info., Patient Portal Info Letter Discharge Order Discharge Orders: Discharge (Routine); Ordered 05/03/25 Ordered By: Fei Forrest Planned Discharge Date 05/03/25 (3) Type 1 diabetes mellitus Qualifiers: Diabetes mellitus complication status: with hyperglycemia Qualified Code(s): E10.65 - Type 1 diabetes mellitus with hyperglycemia
[2025-05-03] MEDS: ACETAMINOPHEN 325 MG TABLET 650 MG PO (14:27)
--- NOTE | 2025-05-04 11:41 | PC.CC ---
[id number] contacted CWS Screeners to inform them that pts will be d/c today and is going home now. ASW spoke with CWS Screener Tina Yen and was transferred to Cristal Yeh SSW/CWS III as that is the pts CWS worker [phone]. ASW was transferred but was only able to leave a voice message.
--- NOTE | 2025-05-04 11:42 | PC.SS ---
This THREAT ANALYST fashion intern completed a face to face assessment with patient at bedside. During assessment baby is seen in bassinet and mother sat at edge of bed. Father of baby was present in room Manuel Driscoll. This THREAT ANALYST fashion intern introduced self and explained reason for bedside visit. Patient appears to be in good spirits. Patient confirmed home address [address], and telephone number. Patient said father of the baby Manuel Driscoll will be transporting her and baby home. Patient states she has car seat and all baby supplies ready. She states moss gatherer will be Dr. Menezes at [facility]. Patient states she will pump breast milk and will bottle feed. Patient has open case with CPS. This THREAT ANALYST Hand Crown Pouncer provided patient with community resources. This THREAT ANALYST fashion intern spoke with nurse Hollins who confirmed baby and mother and bonding appropriately, baby if feeding well and came off of lights yesterday. DAVID Smith will be following up with CPS regarding DC plan.
== END 2025-05-03 15:27 | disposition home or self-care (01) | DRG 540 ==
LOC: S4SX 08:09 → S4NX 08:29
PROVIDERS: Obstetrics & Gynecology; Admitting Provider Obstetrics & Gynecology; Visit Provider Obstetrics & Gynecology
PROC: (CPT 59514; principal; 2025-05-01 08:30)
DX: O24.02 Pre-existing type 1 diabetes mellitus, in childbirth (principal); Z3A.36 36 weeks gestation of pregnancy; E10.65 Type 1 diabetes mellitus with hyperglycemia; O99.284 Endocrine, nutritional and metabolic diseases complicating childbirth; E87.20 Acidosis, unspecified; Z37.0 Single live birth; Z79.4 Long term (current) use of insulin
CPT/HCPCS: 36415; 59025; 76805; 80048; 80053; 80307; 81001; 83036; 84443; 85025; 86780; 86850; 86900; 86901; A4217; A4314; A4649; J0456; J0689; J1650; J1815; J1885; J1938; J2250; J2274; J2371; J2405; J2590; J2765; J2916; J3490; J7050; J7120; J7999; A9270; J2270